=== PATIENT | male | born 1985 | race African-American/Black ===

== ENCOUNTER → 2019-01-25 | Emergency (ER) | payer MEDICAID ==
[~2019-01-25] VITALS: Ht 190.5 cm; Wt 108.0 kg
[~2019-01-25] MED LIST: IBUPROFEN 600 MG TABLET PO ONE; IV NS 0.9% 1,000 ML BAG IV ONE; METOPROLOL TARTRATE 25 MG TABLET PO ONE; METOPROLOL TARTRATE 50 MG TABLET ONE
--- NOTE | 2019-01-25 08:39 | NUR ---
PT BIB EMS AAOx4 C/O UNCONTRALLABLE SWEATING FOR THE PAST FEW DAYS. DENIES ANY PAST MEDICAL HX.
--- NOTE | 2019-01-25 08:42 | NUR ---
PT STATES HE HAS PAIN ALL OVER. MD AT BEDSIDE. BP 203/123
[2019-01-25 09:11] LABS: BASOPHILS % (AUTO) 0.3 % (0.0-2.0); EOSINOPHILS % (AUTO) 0.1 % (0.0-6.0); HEMATOCRIT 48 % (39-51); HEMOGLOBIN 16.2 g/dL (13.5-17.5); LYMPHOCYTES # (AUTO) 0.9 /CMM (0.8-4.8); MEAN CORPUSCULAR HGB CONC 34 g/dl (31.0-36.0); MEAN CORPUSCULAR VOLUME 93 fL (80-96); MONOCYTES # (AUTO) 0.8 /CMM (0.1-1.30); MONOCYTES % (AUTO) 5.9 % (2.0-12.0); NEUTROPHILS # (AUTO) 12.6 /CMM (1.8-8.9); NEUTROPHILS % (AUTO) 87.7 % (43.0-81.0); PLATELET COUNT (AUTO) 169 /CMM (150-450); RED BLOOD CELL COUNT(AUTO) 5.18 MIL/uL (4.5-6.0); WHITE BLOOD COUNT (AUTO) 14.4 K/uL (4.3-11.0)
[2019-01-25 09:19] LABS: CARBON DIOXIDE 27 mmol/L (21-32); CHLORIDE 102 mmol/L (98-107); CREATININE 1.4 mg/dL (0.6-1.3); GLUCOSE 97 mg/dL (74-106); POTASSIUM 3.9 mmol/L (3.5-5.1); SODIUM SERUM 137 mmol/L (136-145); UREA NITROGEN, BLOOD 10 mg/dL (7-18)
--- NOTE | 2019-01-25 09:26 | NUR ---
PT AAO. 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 MEDS GIVEN. PATIENT'S MADE AWARE W PLAN OF CARE.
--- NOTE | 2019-01-25 09:30 | NUR ---
BP 185/137
--- NOTE | 2019-01-25 09:37 | NUR ---
MADE AWARE OF PT'S BP 195/122
[2019-01-25 11:04] VITALS: BP 179/82
--- NOTE | 2019-01-25 11:04 | NUR ---
Patient discharged to home in stable condition. Written and verbal after care instructions given. Patient verbalizes understanding of instruction.
== END | disposition home or self-care (01) ==
LOC: ER 08:34
DX: B34.9 Viral infection, unspecified (principal); I10 Essential (primary) hypertension; Z60.2 Problems related to living alone
CPT/HCPCS: 36415; 71045; 80048; 84484; 85025; 93005; 99284; J7030

== ENCOUNTER → 2024-09-28 | Emergency (ER) | payer SELFPAY ==
[~2024-09-28] VITALS: Ht 193 cm; Wt 111.1 kg
[~2024-09-28] MED LIST changes: +AMLO-212 PO; -IBUPROFEN 600 MG TABLET PO ONE; -IV NS 0.9% 1,000 ML BAG IV ONE; -METOPROLOL TARTRATE 25 MG TABLET PO ONE; -METOPROLOL TARTRATE 50 MG TABLET ONE
[2024-09-28] MEDS: hydrALAZINE HCL IV 20 MG VIAL IV ONE ×2 (20:30→21:24)
[2024-09-28] MEDS: IV NS 0.9% 1,000 ML BAG IV ONE (20:33)
[2024-09-28 20:37] LABS: BASOPHILS # (AUTO) 0.1 K/uL (0.0-0.2); BASOPHILS % (AUTO) 0.7 % (0.0-2.0); EOSINOPHILS # (AUTO) 0.6 K/uL (0.0-0.7); EOSINOPHILS % (AUTO) 7.1 % (0.0-6.0); HEMATOCRIT 45 % (39-51); HEMOGLOBIN 15.1 g/dL (13.5-17.5); LYMPHOCYTES # (AUTO) 2.1 K/uL (0.8-4.8); LYMPHOCYTES % (AUTO) 25.1 % (20.0-44.0); MEAN CORPUSCULAR HEMOGLOBIN 31 PG (26.0-33.0); MEAN CORPUSCULAR HGB CONC 34 g/dl (31.0-36.0); MEAN CORPUSCULAR VOLUME 91 fL (80-96); MONOCYTES # (AUTO) 0.5 K/uL (0.1-1.30); MONOCYTES % (AUTO) 6.4 % (2.0-12.0); NEUTROPHILS % (AUTO) 60.7 % (43.0-81.0); PLATELET COUNT (AUTO) 215 K/uL (150-450); RED BLOOD CELL COUNT(AUTO) 4.91 MIL/uL (4.5-6.0); RED CELL DISTRIBUTION WIDTH 13.5 % (11.5-15.0); WHITE BLOOD COUNT (AUTO) 8.2 K/uL (4.3-11.0)
[2024-09-28 20:46] LABS: CALCIUM, SERUM 9.3 mg/dL (8.5-10.1); CREATININE 1.2 mg/dL (0.6-1.3)
[2024-09-28 20:53] LABS: ALBUMIN 3.9 g/dL (3.4-5.0); BILIRUBIN,DIRECT 0.1 mg/dL (0.0-0.2); BILIRUBIN,TOTAL 0.5 mg/dL (0.2-1.0); TOTAL PROTEIN, SERUM 7.8 g/dL (6.4-8.2)
[2024-09-28 22:29] VITALS: BP 198/118; TEMP 98.8; O2SAT 98
== END | disposition left against medical advice (07) ==
LOC: ER 19:43
DX: I16.1 Hypertensive emergency (principal); R20.2 Paresthesia of skin; R03.0 Elevated blood-pressure reading, without diagnosis of hypertension; R00.2 Palpitations; Z60.2 Problems related to living alone
CPT/HCPCS: 99285; 96374; 70450; 71045; 93005; 96376; 85025; 80048; 80076; 36415; 84484; J0360 ×2; J7030